=== PATIENT | female | born 1995 | race Caucasian/White ===

== ENCOUNTER 2017-03-06 18:31 | Emergency (ER) | payer BC ==
[2017-03-06 19:19] LABS: Hematocrit 44 % (35-47); Hemoglobin 14.4 g/dl (12.0-16.0); Mean Corpuscular HGB Conc 33 g/dl (31-36); Mean Corpuscular Hemoglobin 27 pg (27-31); Mean Corpuscular Volume 81 fL (80-97); Mean Platelet Volume 8 um3 (7.4-10.4); Red Blood Count 5.38 10^6/ul (4.0-5.4); Red Cell Distribution Width 15 % (10.5-15); White Blood Count 7.6 10^3/ul (3.5-10.8)
[2017-03-06 19:20] LABS: Urine Bilirubin Negative (Negative); Urine Glucose Negative (Negative); Urine Nitrite Negative (Negative)
[2017-03-06 19:37] LABS: ALT 14 U/L (7-52); AST 19 U/L (13-39); Albumin 4.4 g/dL (3.2-5.2); Alkaline Phosphatase 35 U/L (34-104); Anion Gap 6 mmol/L (2-11); BUN/Creatinine Ratio 18.5 (8-20); Blood Urea Nitrogen 15 mg/dL (6-24); CO2 Carbon Dioxide 27 mmol/L (22-32); Calcium 9.6 mg/dL (8.6-10.3); Chloride 105 mmol/L (101-111); EGFR African American 114.8 (>60); EGFR Non-African American 89.3 (>60); Globulin 2.7 g/dL (2-4); Glucose 78 mg/dL (70-100); Potassium 3.9 mmol/L (3.5-5.0); Sodium 138 mmol/L (133-145); Total Protein 7.1 g/dL (6.4-8.9)
[2017-03-06 19:38] LABS: Benzodiazepine Urine Screen Presumptive Positive (None Detect)
[2017-03-06 19:51] LABS: Acetaminophen < 15 mcg/mL; Alcohol < 10 mg/dL (<10); Salicylate < 2.50 mg/dL (<30)
--- NOTE | 2017-03-06 21:28 | ED ---
Olivia Haji Abhishek, scribed for Kofi Atkins on 03/06/17 at 2039 . Substance Abuse/Use - HPI Summary HPI Summary: This patient is a _ year old MF _presenting to [facility] accompanied by_ with a chief complaint of substance abuse since 0800 and also 1400 and 1600. Overmedication of a total of 27 tablets of Klonopin. She states did not take the correct amount because she was going to be playing a really big game this weekend and reports she was going to have a panic attack. The patient rates the pain 0/10 in severity. Symptoms aggravated by stress. Symptoms alleviated by nothing. Pt reports anxiety. Patient denies SI. - History Of Current Complaint Chief Complaint: EDMentalHealth Stated Complaint: 27 KLONOPIN .5 MG Time Seen by Provider: 03/06/17 18:45 Hx Obtained From: Patient Ingestion History: Type/Name Of Drug - Klonopin, Amount Ingested - 27 tablets of Klonopin, Approximate Time Of Ingestion - 0800, 1400 and 1600 today Overdose Characteristics: Oral Timing Of Abuse: Binge Use Severity Currently: None Character: Anxious Aggravating Factor(s): Recent Stress Alleviating Factor(s): Nothing Associated Signs And Symptoms: Negative Related Hx: Suicidal PMH/Surg Hx/FS Hx/Imm Hx Psychiatric History: Reports: Hx Anxiety - Panic attacks, Hx Depression, Other Psychiatric Issues/Disorders - Suicidal Ideations Infectious Disease History: No Infectious Disease History: Denies: Traveled Outside the [place] in Last 30 Days - Family History Known Family History: Positive: Cardiac Disease, Other - Psychiatric complaints - Social History Alcohol Use: Occasionally Substance Use Type: Reports: Prescribed Smoking Status (MU): Never Smoked Tobacco Review of Systems Constitutional: Negative Eyes: Negative ENT: Negative Cardiovascular: Negative Respiratory: Negative Gastrointestinal: Negative Genitourinary: Negative Musculoskeletal: Negative Skin: Negative Neurological: Negative Psychological: Other - Negative SI Positive: Anxious All Other Systems Reviewed And Are Negative: Yes Physical Exam - Summary Physical Exam Summary: Appearance: Anxious Skin: warm, dry, reflects adequate perfusion Head/face: normal Eyes: EOMI, CHETAN ENT: normal Neck: supple, non-tender Respiratory: CTA, breath sounds present Cardiovascular: RRR, pulses symmetrical Abdomen: non-tender, soft Bowel: present Musculoskeletal: normal, strength/ROM intact Neuro: normal, sensory motor intact, A&Ox3 Triage Information Reviewed: Yes Vital Signs On Initial Exam: Initial Vitals Temp Pulse Resp BP Pulse Ox 98.0 F 82 16 124/79 99 03/06/17 18:32 03/06/17 18:32 03/06/17 18:32 03/06/17 18:32 03/06/17 18:32 Vital Signs Reviewed: Yes - Walter Coma Scale Coma Scale Total: 15 Diagnostics - Vital Signs Vital Signs Temp Pulse Resp BP Pulse Ox 03/06/17 20:00 59 16 167/95 99 03/06/17 19:45 67/44 03/06/17 19:39 74 98 03/06/17 19:00 71 100 03/06/17 18:52 122/68 03/06/17 18:32 98.0 F 82 16 124/79 99 - Laboratory Lab Results: Lab Results 03/06/17 03/06/17 03/06/17 Range/Units 19:04 19:04 19:07 WBC 7.6 (3.5-10.8) 10^3/ul RBC 5.38 (4.0-5.4) 10^6/ul Hgb 14.4 (12.0-16.0) g/dl Hct 44 (35-47) % MCV 81 (80-97) fL MCH 27 (27-31) pg MCHC 33 (31-36) g/dl RDW 15 (10.5-15) % Plt Count 305 (150-450) 10^3/ul MPV 8 (7.4-10.4) um3 Neut % (Auto) 58.5 (38-83) % Lymph % (Auto) 31.7 (25-47) % [place] % (Auto) 7.0 (1-9) % Eos % (Auto) 1.8 (0-6) % Baso % (Auto) 1.0 (0-2) % Absolute Neuts (auto) 4.4 (1.5-7.7) 10^3/ul Absolute Lymphs (auto) 2.4 (1.0-4.8) 10^3/ul Absolute Monos (auto) 0.5 (0-0.8) 10^3/ul Absolute Eos (auto) 0.1 (0-0.6) 10^3/ul Absolute Basos (auto) 0.1 (0-0.2) 10^3/ul Absolute Nucleated RBC 0.01 10^3/ul Nucleated RBC % 0.1 Sodium 138 (133-145) mmol/L Potassium 3.9 (3.5-5.0) mmol/L Chloride 105 (101-111) mmol/L Carbon Dioxide 27 (22-32) mmol/L Anion Gap 6 (2-11) mmol/L BUN 15 (6-24) mg/dL Creatinine 0.81 (0.51-0.95) mg/dL Est GFR ( Amer) 114.8 (>60) Est GFR (Non-Af Amer) 89.3 (>60) BUN/Creatinine Ratio 18.5 (8-20) Glucose 78 (70-100) mg/dL Calcium 9.6 (8.6-10.3) mg/dL Total Bilirubin 0.70 (0.2-1.0) mg/dL AST 19 (13-39) U/L ALT 14 (7-52) U/L Alkaline Phosphatase 35 (34-104) U/L Total Protein 7.1 (6.4-8.9) g/dL Albumin 4.4 (3.2-5.2) g/dL Globulin 2.7 (2-4) g/dL Albumin/Globulin Ratio 1.6 (1-3) TSH 0.80 (0.34-5.60) mcIU/mL Beta HCG, Quant < 0.60 mIU/mL Urine Color Urine Appearance Urine pH (5-9) Ur Specific [place] (1.010-1.030) Urine Protein (Negative) Urine Ketones (Negative) Urine Blood (Negative) Urine Nitrate (Negative) Urine Bilirubin (Negative) Urine Urobilinogen (Negative) Ur Leukocyte Esterase (Negative) Urine Glucose (Negative) Salicylates < 2.50 (<30) mg/dL Urine Opiates Screen None detected (None Detect) Acetaminophen < 15 mcg/mL Ur Barbiturates Screen None detected (None Detect) Ur Phencyclidine Scrn None detected (None Detect) Ur Amphetamines Screen None detected (None Detect) U Benzodiazepines Scrn Presumptive positive H (None Detect) Urine Cocaine Screen None detected (None Detect) U Cannabinoids Screen None detected (None Detect) Serum Alcohol < 10 (<10) mg/dL 03/06/17 Range/Units 19:07 WBC (3.5-10.8) 10^3/ul RBC (4.0-5.4) 10^6/ul Hgb (12.0-16.0) g/dl Hct (35-47) % MCV (80-97) fL MCH (27-31) pg MCHC (31-36) g/dl RDW (10.5-15) % Plt Count (150-450) 10^3/ul MPV (7.4-10.4) um3 Neut % (Auto) (38-83) % Lymph % (Auto) (25-47) % [place] % (Auto) (1-9) % Eos % (Auto) (0-6) % Baso % (Auto) (0-2) % Absolute Neuts (auto) (1.5-7.7) 10^3/ul Absolute Lymphs (auto) (1.0-4.8) 10^3/ul Absolute Monos (auto) (0-0.8) 10^3/ul Absolute Eos (auto) (0-0.6) 10^3/ul Absolute Basos (auto) (0-0.2) 10^3/ul Absolute Nucleated RBC 10^3/ul Nucleated RBC % Sodium (133-145) mmol/L Potassium (3.5-5.0) mmol/L Chloride (101-111) mmol/L Carbon Dioxide (22-32) mmol/L Anion Gap (2-11) mmol/L BUN (6-24) mg/dL Creatinine (0.51-0.95) mg/dL Est GFR ( Amer) (>60) Est GFR (Non-Af Amer) (>60) BUN/Creatinine Ratio (8-20) Glucose (70-100) mg/dL Calcium (8.6-10.3) mg/dL Total Bilirubin (0.2-1.0) mg/dL AST (13-39) U/L ALT (7-52) U/L Alkaline Phosphatase (34-104) U/L Total Protein (6.4-8.9) g/dL Albumin (3.2-5.2) g/dL Globulin (2-4) g/dL Albumin/Globulin Ratio (1-3) TSH (0.34-5.60) mcIU/mL Beta HCG, Quant mIU/mL Urine Color Yellow Urine Appearance Clear Urine pH 5.0 (5-9) Ur Specific [place] 1.013 (1.010-1.030) Urine Protein Negative (Negative) Urine Ketones Negative (Negative) Urine Blood Negative (Negative) Urine Nitrate Negative (Negative) Urine Bilirubin Negative (Negative) Urine Urobilinogen Negative (Negative) Ur Leukocyte Esterase Negative (Negative) Urine Glucose Negative (Negative) Salicylates (<30) mg/dL Urine Opiates Screen (None Detect) Acetaminophen mcg/mL Ur Barbiturates Screen (None Detect) Ur Phencyclidine Scrn (None Detect) Ur Amphetamines Screen (None Detect) U Benzodiazepines Scrn (None Detect) Urine Cocaine Screen (None Detect) U Cannabinoids Screen (None Detect) Serum Alcohol (<10) mg/dL Result Diagrams: 03/06/17 19:04 03/06/17 19:04 Lab Statement: Any lab studies that have been ordered have been reviewed, and results considered in the medical decision making process. Course/Dx - Course Course Of Treatment: Pt reports anxiety. Patient denies SI. This patient is a _ year old MF _presenting to [facility] accompanied by_ with a chief complaint of substance abuse since 0800 and also 1400 and 1600. Overmedication of a total of 27 tablets of Klonopin. Patient is signed out to Dr. Elizabeth, pending disposition , awaiting [facility]. The patient is agreeable with this plan. Dx is Drug overdose, depression and anxiety. - Diagnoses Differential Diagnosis/HQI/PQRI: Positive: Acute Psychosis, Depression, Other - dod Provider Diagnoses: Depression, Anxiety, Drug overdose Discharge - Discharge Plan Condition: Stable Disposition: OTHER Discharge Disposition Comment: Patient is signed out to Dr. Elizabeth, pending disposition, awaiting [facility] Referrals: Non Staff,Doctor [Primary Care Provider] - The documentation as recorded by the Olivia sebastian Abhishek accurately reflects the service I personally performed and the decisions made by , Kofi Atkins.
[2017-03-07 01:26] VITALS: BP 99/62
[2017-03-07] MEDS ORDERED: Haloperidol INJ IV/IM* 5 MG/ML AMP IM PRN (02:24)
[2017-03-07] MEDS ORDERED: LORazepam INJ* 2 MG/ML 1 ML VIAL IM PRN (02:25)
--- NOTE | 2017-03-07 07:11 | ED ---
Rupali Haji Edward, scribed for Megan Elizabeth MD on 03/07/17 at 0710 . Progress - Progress Note Progress Note: Pt signed out by Dr. Atkins at shift change. Course/Dx - Course Course Of Treatment: Pt signed out by Dr. Atkins. Pt had a psych eval. After psych eval pt [place] [facility] - Diagnoses Provider Diagnoses: Depression, Anxiety, Drug overdose The documentation as recorded by the millyibRupali sequeira Edward accurately reflects the service I personally performed and the decisions made by , Megan Elizabeth MD.
[2017-03-07] MEDS ORDERED: clonazePAM TAB(*) 0.5 MG PO ONE (09:53)
[2017-03-07] MEDS ORDERED: Aspirin TAB* 325 MG PO ONE (09:53)
[2017-03-07] MEDS ORDERED: Vortioxetine (NF) 10 MG TAB (FORMERLY Brintellix) PO SCH (10:00)
[2017-03-07] MEDS ORDERED: Aspirin EC Low Dose* 81 MG TAB.EC ONE (10:00)
[2017-03-07] MEDS ORDERED: Aspirin EC Low Dose* 81 MG TAB.EC PO ONE (10:17)
--- NOTE | 2017-03-07 18:37 | ED ---
Jace Haji Angela, scribed for Ismael Haines MD on 03/07/17 at 1106 . Progress - Progress Note Progress Note: This pt was signed out at shift change by Dr. Elizabeth, pending disposition, awaiting [facility]. Pt was seen and evaluated by Dr. Nichols, who recommends discharge. Dr. Condon- technical report writer services at [facility], was contacted and she agrees with the plan to discharge pt. Pt will be discharge to home in stable condition with a diagnosis of anxiety. Pt will follow up as outpatient with her treatment providers in her [facility]. - Consult/PCP Time Called: 22:00 Course/Dx - Diagnoses Provider Diagnoses: Anxiety The documentation as recorded by the Jace sebastian Angela accurately reflects the service I personally performed and the decisions made by , Ismael Haines MD.
== END 2017-03-07 11:14 | disposition home or self-care (01) ==
LOC: ED 18:31
DX: F41.9 Anxiety disorder, unspecified (principal)
CPT/HCPCS: 36415; 80053; 80307; 80320; 80329; 81003; 84443; 84702; 85025; 96372; 99285; A9270-GY; G0480